=== PATIENT | male | born 1970 | race Caucasian/White ===

== ENCOUNTER 2024-02-12 10:27 | Emergency (ER) | payer BC ==
[2024-02-12 11:04] VITALS: O2SAT 99
--- NOTE | 2024-02-12 13:30 | ED Physician Documentation ---
History of Present Illness - Stated complaint Stated Complaint: LT FOOT FB - Chief complaint Chief Complaint: Ext Problem - History obtained from History obtained from: Patient - History of Present Illness Timing: Yesterday Pain level max: 3 Pain level now: 3 - Additonal information Additional information: 53-year-old male presents to the emergency department with a splinter in the plantar aspect of the left heel. He attempted to remove it yesterday. States was unable to remove. Came in today for evaluation. Unknown last tetanus shot. Worse with walking, better with rest. This occurred from a wooden deck. Review of Systems Constitutional: denies: Fever PD PAST MEDICAL HISTORY - Past Medical History Past Medical History: No - Past Surgical History Past Surgical History: Yes Ortho: Other - Allergies Allergies/Adverse Reactions: Allergies Allergy/AdvReac Type Severity Reaction Status Date / Time No Known Drug Allergies Allergy Verified 02/12/24 11:00 - Social History Does the pt smoke?: No Smoking Status: Never smoker Does the pt drink ETOH?: No - Immunizations Immunizations are current?: Yes PD ED PE NORMAL - Vitals Vital signs reviewed: Yes - General General: Alert and oriented X 3, No acute distress - Derm Derm: Warm and dry - Extremities Extremities: Other (L foot - small FB visible in the L heel plantar aspect.) - Neuro Neuro: Alert and oriented X 3 - Psych Psych: Normal mood, Normal affect Results - Vitals Vitals: Vital Signs - 24 hr 02/12/24 02/12/24 11:00 13:55 Temperature 36.4 C L 36.5 C Heart Rate 84 80 Respiratory 16 16 Rate Blood Pressure 159/90 H 150/88 H O2 Saturation 99 99 Procedures - FB removal FB location: Subcutaneous FB removal preparation: Local anesthesia-specify (1% lidocaine) Removal method: Other (18g needle) FB removal aftercare: No complications, Patient tolerated well, Removed successfully PD Medical Decision Making - ED course Complexity details: considered differential, d/w patient ED course: Patient with a small wooden splinter in the plantar aspect of the left heel. This was removed in the emergency department. Tolerated well. Cleansed and bandaged. Tdap given. Counseled regarding signs of infection. Patient counseled regarding signs and symptoms for which I believe and urgent re- evaluation would be necessary. Patient with good understanding of and agreement to plan and is comfortable going home at this time This document was made in part using voice recognition software. While efforts are made to proofread this document, sound alike and grammatical errors may occur. Departure - Departure Disposition: 01 Home, Self Care Clinical Impression: Splinter of foot Qualifiers: Encounter type: initial encounter Laterality: left Qualified Code(s): S90.852A - Superficial foreign body, left foot, initial encounter Condition: Good Instructions: ED Foreign Body Splinter Removal Follow-Up: your,doctor as needed [Other] Comments: The splinter was removed from your foot today. Please return if you worsen. Keep the wound clean. Return if you notice redness, swelling or drainage from the wound. Forms: PCP List Discharge Date/Time: 02/12/24 13:57
[2024-02-12] MEDS: TETANUS/DIPHTHERIA/PERTUSSIS 0.5 ML SYRINGE IM ONE (13:54)
[2024-02-12] MEDS: BACITRACIN ZINC OINT 1 PACKET TOP STA (13:54)
[2024-02-12 14:01] VITALS: BP 150/88
== END 2024-02-12 13:57 | disposition home or self-care (01) ==
LOC: ED 10:27
DX: S90.852A Superficial foreign body, left foot, initial encounter (principal); W45.8XXA Other foreign body or object entering through skin, initial encounter; Z23 Encounter for immunization
CPT/HCPCS: 90471; 90715; 99283; A9270